=== PATIENT | female | born 1960 | race Caucasian/White ===

== ENCOUNTER 2023-11-20 22:37 | Emergency (ER) | payer SELFPAY ==
[2023-11-20 22:39] VITALS: BP 164/85; PULSE 75; RESP 16; TEMP 36.6; O2SAT 98; BMI 20.3
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
[2023-11-20 22:57] VITALS: BP 159/87; PULSE 71; RESP 16; TEMP 36.6; O2SAT 98
== END 2023-11-20 23:07 ==
PROVIDERS: Emergency Provider Emergency Medicine
DX: R51.9 Headache, unspecified (principal); V49.40XA Driver injured in collision with unspecified motor vehicles in traffic accident, initial encounter; F17.210 Nicotine dependence, cigarettes, uncomplicated; Y92.410 Unspecified street and highway as the place of occurrence of the external cause
CPT/HCPCS: 99284